=== PATIENT | male | born 1995 | race Caucasian/White ===

== ENCOUNTER 2019-03-13 08:10 | Day surgery (SDC) | payer OTHER, BC ==
[~2019-03-13] VITALS: Ht 182.9 cm; Wt 78.1 kg
[~2019-03-13 08:10] MED LIST: CEPH500 PO; MULTIVITAMINS1 EAC3 PO; OMEP20ER PO
[2019-03-13] MEDS ORDERED: TRAM50 PO (08:49)
--- NOTE | 2019-03-13 08:53 | NUR ---
03/13/19 0853 Elvia Pritchett 1ST IV ATTEMPT IN [facility] INFILTRATED, STARTED BY DEONTE RAMIREZ
== END 2019-03-13 11:37 | disposition home or self-care (01) ==
LOC: ORSCSDS 08:10
PROVIDERS: Otolaryngology
PROC: 0CTPXZZ Resection of Tonsils, External Approach (ICD-10-PCS; principal; 2019-03-13 09:30)
DX: J35.01 Chronic tonsillitis (principal)
CPT/HCPCS: 88304; J0330; J1100; J2250; J2370; J2405; J2704; J3010; J7120

== ENCOUNTER 2019-03-14 15:00 | Observation (INO) | payer OTHER, BC ==
[~2019-03-14] VITALS: Ht 182.9 cm; Wt 77.1 kg
[~2019-03-14 15:00] MED LIST changes: +TRAM50 PO
--- NOTE | 2019-03-14 18:35 | NUR ---
Patient up to Amb[facility] independently. Gait steady. Discharge instructions reviewed with patient. Patient verbalizes understanding. Copy given to patient to take home. Patient States Post-Procedure ride home has been arranged. Discharged via wheelchair to private car for ride home.
== END 2019-03-14 18:35 | disposition home or self-care (01) ==
LOC: ER 15:00 → SURS 16:31
PROVIDERS: ADMIT Otolaryngology
PROC: 0W337ZZ Control Bleeding in Oral Cavity and Throat, Via Natural or Artificial Opening (ICD-10-PCS; principal; 2019-03-14 18:00)
DX: K91.840 Postprocedural hemorrhage of a digestive system organ or structure following a digestive system procedure (principal)
CPT/HCPCS: 36415; 99284; J0330; J1100; J2370; J2405; J2704; J2765; J3010